=== PATIENT | male | born 1955 | race Caucasian/White ===

== ENCOUNTER 2019-05-27 10:12 | Inpatient (IN) | payer OTHER ==
[~2019-05-27] VITALS: Ht 175.3 cm; Wt 55.8 kg
[2019-05-27 10:16] VITALS: BP 191/136
--- NOTE | 2019-05-27 10:26 | NUR ---
Patient ambulated to bed 7. RN evaluating patient at bedside.
--- NOTE | 2019-05-27 10:31 | NUR ---
63 Y/O MALE PRESENTS TO ED WITH C/O SOB & COUGH X 1 WEEK. ALSO C/O DIZZINESS, AND HEADACHE /. PT STATES HE STOPPED SMOKING THIS WEEK, BUT WAS A 1/2 A PACK A DAY SMOKER. STATES POSITIONAL SOB WHEN LYING DOWN, BUT HAS RELIEF WHEN SITTING, STANDING, OR WALKING. DENIES N/V/D. HAS PMH OF HTN, AND STATES NO MEDS HAVE BEEN TAKEN X 1 WEEK. BP: 205/143; O2%: 96. BLL CTA IN ALL LOBES. BED RAIL X1, WILL CONTINUE TO MONITOR NKDA PMH: HTN
--- NOTE | 2019-05-27 10:44 | NUR ---
ERMD AT BEDSIDE
--- NOTE | 2019-05-27 10:44 | NUR ---
Dr. Gillis evaluating pt at bedside.
[2019-05-27] MEDS ORDERED: ENALAPRILAT 2.5 MG/2 ML VIAL IVP ONE ×2 (10:50→11:00)
[2019-05-27] MEDS ORDERED: IPRATROPIUM 0.02% 0.5 MG/2.5 ML NEBU INH ONE (10:50)
[2019-05-27] MEDS ORDERED: ALBUTEROL 0.083% 2.5 MG/3 ML NEBU INH ONE (10:50)
--- NOTE | 2019-05-27 11:01 | NUR ---
Xray at bedside
--- NOTE | 2019-05-27 11:09 | NUR ---
Breathing treatment administered by respiratory therapist at bedside.
[2019-05-27] MEDS ORDERED: AZITHROMYCIN 500 MG in DEXTROSE 5% 250 ML IV ONE (11:10)
[2019-05-27 11:15] LABS: BASOPHILS # (AUTO) 0.1 K/uL (0.00-0.22); BASOPHILS % (AUTO) 0.9 % (0.0-2.0); EOSINOPHILS % (AUTO) 0.5 % (0.0-4.0); HEMATOCRIT 33.1 % (36-52); HEMOGLOBIN 10.9 g/dL (12.0-18.0); LYMPHOCYTES % (AUTO) 11.4 % (20.5-51.1); MEAN CORPUSCULAR HEMOGLOBIN 31 pg (27-31); MEAN CORPUSCULAR HGB CONC 33 g/dL (33-37); MEAN CORPUSCULAR VOLUME 93.8 fL (80-94); MONOCYTES # (AUTO) 0.6 K/uL (0.8-1.0); NEUTROPHILS # (AUTO) 6.7 K/uL (1.8-7.7); NEUTROPHILS % (AUTO) 80.2 % (42.2-75.2); PLATELET COUNT (AUTO) 91 K/uL (140-450); RED BLOOD CELL COUNT(AUTO) 3.52 MIL/uL (4.20-6.10); RED CELL DISTRIBUTION WIDTH 16.8 % (11.6-13.7); WHITE BLOOD COUNT (AUTO) 8.3 K/uL (4.8-10.8)
[2019-05-27] MEDS ORDERED: cefTRIAXone 1,000 MG VIAL ONE (11:25)
[2019-05-27] MEDS ORDERED: AZITHROMYCIN 500 MG INJ VIAL IV ONE (11:25)
--- NOTE | 2019-05-27 11:26 | NUR ---
lab at bedside.
[2019-05-27 11:35] LABS: ALBUMIN 3.3 g/dL (3.4-5.0); ANION GAP 15.3 (8-16); CARBON DIOXIDE 27.6 mmol/L (21-32); CREATININE 3.7 mg/dL (0.6-1.3); TOTAL BILIRUBIN 1.2 mg/dL (0.0-1.0)
[2019-05-27 11:39] LABS: POTASSIUM 2.9 mmol/L (3.5-5.1)
[2019-05-27] MEDS ORDERED: methylPREDNISolone SS 125 MG/2 ML VIAL IVP ONE (11:40)
[2019-05-27] MEDS ORDERED: ASPIRIN 81 MG TAB.CHEW PO ONE (11:55)
[2019-05-27 12:06] LABS: APPEARANCE,URINE CLEAR (CLEAR); BILIRUBIN,URINE NEGATIVE (NEGATIVE); BLOOD, URINE 3+ (NEGATIVE); COLOR,URINE YELLOW (YELLOW); LEUKOCYTE ESTERASE ,URINE NEGATIVE (NEGATIVE); NITRITE, URINE NEGATIVE (NEGATIVE); UGLUCOSE NEGATIVE (NEGATIVE)
[2019-05-27 12:26] LABS: RBC,URINE 11-20 (MOD) /HPF (0-5); WBC,URINE 0-5 /HPF (0-5)
[2019-05-27 12:33] LABS: COARSE GRANULAR CASTS,URINE 0-10 /LPF (None Seen); HYALINE CASTS, URINE 0-10 /LPF (None Seen)
[2019-05-27] MEDS ORDERED: MORPHINE SULFATE 2 MG/ML SYR IVP PRN (13:05)
[2019-05-27] MEDS ORDERED: HYDROcodone/APAP 5/325 MG 1 TAB TAB PO PRN (13:05)
[2019-05-27] MEDS ORDERED: ONDANSETRON 4 MG/2 ML VIAL IVP PRN (13:05)
[2019-05-27] MEDS ORDERED: LORazepam 2 MG/ML VIAL IVP PRN (13:05)
[2019-05-27] MEDS ORDERED: ACETAMINOPHEN 325 MG TAB PO PRN (13:05)
[2019-05-27] MEDS ORDERED: ALBUTEROL 0.083% 2.5 MG/3 ML NEBU INH PRN (13:05)
[2019-05-27] MEDS ORDERED: FUROSEMIDE 100 MG/10 ML VIAL IVP SCH (13:30)
[2019-05-27] MEDS: hydrALAZINE 20 MG/ML VIAL IVP PRN ×2 (13:34→13:37)
--- NOTE | 2019-05-27 14:00 | NUR ---
PT ADMITTED AT THIS TIME FROM ER COMING FROM HOME. PT ARRIVED ON UNIT VIA GURNEY. AAOX4, NO DISTRESS NOTED, DENIES PAIN, RESPIRATIONS EVEN AND UNLABORED ON ROOM AIR. SKIN INTACT. IV SITE IN PLACE PATENT AND ASYMPTOMATIC SALINE LOCKED IN L FA 20G. PT SEEN BY DR VALLEJO. UPON ADMISSION K+ WAS 2.9, NO POTASSIUM GIVEN IN ER, NO POTASSIUM ORDERED BY DR. VALLEJO. SAFETY MEASURES IN PLACE, CALL LIGHT WITHIN REACH, BED IN LOW POSITION. WILL CONTINUE TO MONITOR.
--- NOTE | 2019-05-27 14:00 | NUR ---
Patient will be admitted to care of [facility]. Admited to TELE. Will go to [id number]. Belongings list completed. Report Alex AYALA.
[2019-05-27] MEDS ORDERED: POTASSIUM CHLORIDE 10 MEQ TABER PO SCH (15:40)
[2019-05-27 16:00] VITALS: BP 154/93
[2019-05-27] MEDS: FUROSEMIDE 40 MG/4 ML VIAL IVP SCH (16:42)
--- NOTE | 2019-05-27 16:48 | NUR ---
MEDICATIONS ADMINISTERED, AWAKE AND SITTING SAFETY MEASURES IN PLACE AND CALL LIGHT WITHIN REACH.WILL CONTINUE MONITORING.
[2019-05-27] MEDS ORDERED: LISI40TA4 PO (17:18)
[2019-05-27] MEDS ORDERED: OMEP20TC12 PO (17:18)
[2019-05-27 18:22] LABS: ANION GAP 17.4 (8-16); CARBON DIOXIDE 25.8 mmol/L (21-32); CREATININE 3.8 mg/dL (0.6-1.3); POTASSIUM 3.2 mmol/L (3.5-5.1)
--- NOTE | 2019-05-27 18:58 | NUR ---
PT IN STABLE CONDITION, WILL ENDORSE TO NIGHT NURSE FOR CONTINUITY OF CARE.
--- NOTE | 2019-05-27 19:15 | NUR ---
CALLED DR SHANNON TO INFORM OF CRITICAL VALUES TROP. 0.285, BUN 74, CREATININE 3.8, ORDERS RECEIVED. INFORMED DR OF K+ OF 3.2 RECEIVED ORDER OF 40MEQ IV.
--- NOTE | 2019-05-27 19:20 | NUR ---
RECIEVED PT. AAOX4 , NID - O2 SAT WNL , DENIES ANY PAIN AT THIS TIME. HE SAID HE HAD ON AND OFF SOB , BUT HE FEELS A LITTLE BIT BETTER NOW THAN IT WAS. ON SL - INTACT AND PATENT . POC DISCUSSED AND VERBALIZE UNDERSTANDING - CALL LIGHT . URINAL WITHIN REACH. WILL CONT. TO MONITOR. ON CARDIAC DIET AND RESTRICTION ON FLD RE EMPHASIZED.
[2019-05-27] MEDS ORDERED: POTASSIUM CHLORIDE 40 MEQ, LIDOCAINE MPF 1% 25 MG in NACL 0.9% 250 ML IV ONE (19:25)
[2019-05-27 20:00] VITALS: BP 144/95
[2019-05-27] MEDS ORDERED: KCL 20 MEQ/WATER INJ PREMIX 100 ML IV ONE (20:26)
[2019-05-27] MEDS ORDERED: KCL 20 MEQ/WATER INJ PREMIX 200 ML IV ONE (21:30)
--- NOTE | 2019-05-27 21:33 | NUR ---
DR SHANNON REVISED THE ORDER FOR KCL- MAY GIVE KCL W/O XYLOCAINE - SAME MEQ DOSAGE T.O - WILL CARRY OUT.
--- NOTE | 2019-05-27 21:53 | NUR ---
THE FIRST BAG OF POTASIUM CHLORIDE 20 MEQ GIVN TIV ORDERED. WILL CONT. TO MONITOR.
--- NOTE | 2019-05-27 22:00 | NUR ---
MADE ROUNDS - I FIXED THE BEDSIDE TEL. FOR THE PT. BECAUSE HER SISTER CALLED WHILE AGO AND REQUESTED SHE WANTS TO HAVE TEL. CONVERSATION W/ THE PT. - PT INFORMED ABOUT THIS.
--- NOTE | 2019-05-27 23:40 | NUR ---
REFUSED BLD.DRAW FOR RPT. TROPONIN - INFORMED CHARGE NURSE.
[2019-05-28] VITALS (7 sets, daily range): BP systolic 129–167; BP diastolic 74–105
--- NOTE | 2019-05-28 | NUR ---
MIDNIGHT SNACK PROVIDED . NO FURTHER COMPLAIN MADE.
--- NOTE | 2019-05-28 00:10 | NUR ---
THE 2ND BAG OF POTASSIUM CHLORIDE ( 2O MEQ ) GIVEN W/ SERIAL # [id number] - CHARGE NURSE KAMAR VARGAS.
--- NOTE | 2019-05-28 01:44 | NUR ---
MADE ROUNDS - SLEEPING - CHEST RISE AND FALL EQUALLY - ON NUCLEAR SPECTROSCOPIST - WILL CONT. TO MONITOR . CALL LIGHT WITHIN REACH.
--- NOTE | 2019-05-28 04:00 | NUR ---
MADE ROUNDS , EATING VANILLA PUDDING , NO COMPLAIN MADE , WI;; CONT. TO MONITOR.
--- NOTE | 2019-05-28 05:10 | NUR ---
C/O HEARTBURN - RE CHECK BP 148/89 , CA 100 , O2 SAT 96% - WILL REFER TO CODE MACHINE OPERATOR. - CALL LIGHT WITHIN REACH.
--- NOTE | 2019-05-28 05:15 | NUR ---
PAGE DR. SHANNON ABOUT THE PT. C/O HEARTBURN - WILL WAIT CALL BACK.
--- NOTE | 2019-05-28 05:25 | NUR ---
INFORM CHARGE NO CALL BACK YET FROM. DR. SHANNON . REFUSED BLD. DRAW THIS AM - INFORM CHARGE NURSE .
--- NOTE | 2019-05-28 05:40 | NUR ---
DR. MIRTHA GÓMEZ- PEPCID 20MG TIV Q12H T.O - WILL CARRY OUT.
[2019-05-28] MEDS: FAMOTIDINE 20 MG/2 ML VIAL IV SCH ×2 (05:53→20:32)
--- NOTE | 2019-05-28 05:53 | NUR ---
PEPCID 20MG TIV GIVEN FOR HEARTBURN ORDERED - WILL CONT. TO MONITOR. PT REQUESTING OATMEAL FOR BRAKFAST - WILL INFORM KITCHEN.
--- NOTE | 2019-05-28 07:20 | NUR ---
RECEIVED BEDSIDE REPORT FROM LUCY GILL. PATIENT IN BED ASLEEP, EASILY AROUSABLE BY NAME OR TOUCH. RESPIRATION EVEN AND UNLABORED. SKIN WARM AND DRY TO TOUCH. IV INTACT AND PATENT TO LEFT FOREARM SALINE LOCK. PER REPORT PATIENT REFUSED AM LABS, OR DIRECTOR NOTIFIED. PLANS OF CARE DISCUSSED. BED IN LOW POSITION. SAFETY MEASURES IN PLACE. CALL LIGHT WITHIN REACH.
--- NOTE | 2019-05-28 08:17 | NUR ---
PATIENT HAS BEEN SCREENED AND CATEGORIZED MODERATE NUTRITION RISK. PATIENT WILL BE SEEN WITHIN 3-5 DAYS OF ADMISSION. 05/30/19 06/01/[address]
--- NOTE | 2019-05-28 08:37 | NUR ---
PT HAS BEEN REFUSING LAB DRAWS. EDUCATED PT ON THE IMPORTANCE OF LAB DRAWS CONSIDERING HIS HEART AND KIDNET SITUATION. PT CONTINUES TO REFUSE.
[2019-05-28] MEDS: AZITHROMYCIN 500 MG in DEXTROSE 5% 250 ML IV SCH (09:09)
[2019-05-28] MEDS: FUROSEMIDE 40 MG/4 ML VIAL IVP SCH (09:10)
--- NOTE | 2019-05-28 09:20 | NUR ---
AM MEDICATIONS GIVEN. PATIENT IS AAOX4. ABLE TO MAKE NEEDS KNOWN. NO S/S OF DISTRESS NOTED. PATIENT ATE BREAKFAST. CALL LIGHT WITHIN REACH.
--- NOTE | 2019-05-28 10:23 | NUR ---
DR. VALLEJO AT BEDSIDE WITH CHARGE NURSE.
--- NOTE | 2019-05-28 10:24 | NUR ---
AT THE BEDSIDE WITH DR VALLEJO, PT ACCEPTED TO RECEIVE BLOOD DRAWS FOR LAB.
[2019-05-28 10:52] LABS: BASOPHILS % (AUTO) 0.2 % (0.0-2.0); HEMATOCRIT 34.4 % (36-52); HEMOGLOBIN 11.2 g/dL (12.0-18.0); LYMPHOCYTES # (AUTO) 0.5 K/uL (2.0-11.5); LYMPHOCYTES % (AUTO) 5.4 % (20.5-51.1); MEAN CORPUSCULAR HEMOGLOBIN 31 pg (27-31); MEAN CORPUSCULAR HGB CONC 33 g/dL (33-37); MEAN CORPUSCULAR VOLUME 94.5 fL (80-94); MONOCYTES # (AUTO) 0.2 K/uL (0.8-1.0); MONOCYTES % (AUTO) 2.6 % (1.7-9.3); NEUTROPHILS # (AUTO) 8.3 K/uL (1.8-7.7); NEUTROPHILS % (AUTO) 91.8 % (42.2-75.2); PLATELET COUNT (AUTO) 99 K/uL (140-450); RED BLOOD CELL COUNT(AUTO) 3.64 MIL/uL (4.20-6.10); RED CELL DISTRIBUTION WIDTH 17.4 % (11.6-13.7)
[2019-05-28 11:12] LABS: ALBUMIN 2.9 g/dL (3.4-5.0); ANION GAP 16.1 (8-16); CARBON DIOXIDE 25.8 mmol/L (21-32); CREATININE 3.7 mg/dL (0.6-1.3); MAGNESIUM 1.4 mg/dL (1.8-2.4); POTASSIUM 3.9 mmol/L (3.5-5.1); TOTAL BILIRUBIN 0.9 mg/dL (0.0-1.0)
--- NOTE | 2019-05-28 11:45 | NUR ---
DR. VALLEJO PAGED IN REGARDS TO PATIENT'S CRITICAL LABS.
--- NOTE | 2019-05-28 12:30 | NUR ---
PATIENT IS AAOX4. ABLE TO MAKE NEEDS KNOWN. NO S/S OF DISTRESS NOTED. PATIENT ATE BREAKFAST. CALL LIGHT WITHIN REACH. VS CHECKED. Addendum: 05/28/19 at 1448 by Mayra Gallego RN CORRECTION TO NOTE ABOVE: PATIENT EATING LUNCH.
--- NOTE | 2019-05-28 12:30 | NUR ---
DR. VALLEJO NOTIFIED OF CRITICAL LAB VALUES. ORDERS RECEIVED.
[2019-05-28] MEDS: hydrALAZINE 20 MG/ML VIAL IVP PRN (12:46)
[2019-05-28] MEDS ORDERED: MAGNESIUM OXIDE 400 MG TAB PO SCH (12:47)
--- NOTE | 2019-05-28 14:30 | NUR ---
PATIENT IS IN BED, ASLEEP EASILY AROUSABLE BY NAME OR TOUCH. NO S/S OF DISTRESS NOTED.
[2019-05-28] MEDS ORDERED: MAG SULF 2000 MG/WATER PREMIX 50 ML IV SCH (15:00)
--- NOTE | 2019-05-28 15:05 | NUR ---
NOTIFIED DR. MCKEON THAT PATIENT RECEIVED MG OX 800MG PO X1 PRIOR TO THE MAG RIDER HE ORDERED. DR. MCKEON CLARIFIED OKAY TO GIVE THE MG RIDER 2GM HE ORDERED.
[2019-05-28] MEDS: FUROSEMIDE 40 MG TAB PO SCH (16:39)
[2019-05-28] MEDS: TAMSULOSIN 0.4 MG CAP PO SCH (16:39)
--- NOTE | 2019-05-28 16:45 | NUR ---
PATIENT AWAKE, ALERT AND ORIENTED X4. PT TALKING ON THE PHONE. NO S/S OF DISTRESS NOTED. CALL LIGHT WITHIN REACH.
--- NOTE | 2019-05-28 18:46 | NUR ---
PATIENT IN STABLE CONDITION. WILL ENDORSE TO NIGHT NURSE FOR CONTINUITY OF CARE.
--- NOTE | 2019-05-28 19:20 | NUR ---
RECEIVED BEDSIDE REPORT FROM DAY RN. PATIENT IN BED ASLEEP, EASILY AROUSABLE BY NAME OR TOUCH. PT IS AAOX4. RESPIRATION EVEN AND UNLABORED. SKIN WARM AND DRY TO TOUCH. IV INTACT AND PATENT TO LEFT FOREARM 20G SALINE LOCK. PT WITH NEDA PITTING EDEMA ON LOWER EXTREMITIES +1. PLANS OF CARE DISCUSSED. BED IN LOW POSITION. SAFETY MEASURES IN PLACE. CALL LIGHT WITHIN REACH.
--- NOTE | 2019-05-28 20:32 | NUR ---
VSS. ANKUR MEDICATIONS GIVEN PER ORDERS. ALL NEEDS MET. CALL LIGHT IS WITHIN REACH.
--- NOTE | 2019-05-28 21:00 | NUR ---
PT SEEN AND ASSESS AT THIS TIME. PT IS IN NO APPARENT RESPIRATORY DISTRESS AT THIS TIME: HR 102, RR 18, SPO2 98% ON ROOM AIR, AND A BILATERAL CLEAR BREATH SOUNDS ON UPPER LOBES. HHN PRN TX NOT INDICATED AT THIS MOMENT. PT WAS INFORMED TO CALL RN OR RAILROAD CAR TRUCK BUILDER WHEN EXPERIENCING SOB. WILL CONTINUE TO MONITOR PT.
--- NOTE | 2019-05-28 22:30 | NUR ---
PT IS SLEEPING COMFORTABLY IN BED WITH EYES CLOSED. CHEST RISE AND FALL. ALL SAFETY MEASURES ARE IN PLACE.
[2019-05-29] VITALS: BP 172/99
[2019-05-29] MEDS: hydrALAZINE 20 MG/ML VIAL IVP PRN (00:53)
--- NOTE | 2019-05-29 00:53 | NUR ---
ADMINISTERED PRN HYDRALAZINE FOR B/P 172/99 HR 107. CALL LIGHT IS WITHIN REACH. WILL CONTINUE TO MONITOR.
[2019-05-29 02:00] VITALS: BP 139/76
--- NOTE | 2019-05-29 02:00 | NUR ---
REASSESS B/P:139/76 HR 111. ALL NEEDS MET. CALL LIGHT IS WITHIN REACH.
[2019-05-29 04:00] VITALS: BP 150/84
--- NOTE | 2019-05-29 04:00 | NUR ---
VITAL SIGNS ARE WITHIN NORMAL LIMITS. ALL SAFETY MEASURES ARE IN PLACE. CALL LIGHT IS WITHIN REACH.
--- NOTE | 2019-05-29 06:26 | NUR ---
PT IS SLEEPING COMFORTABLY IN BED WITH EYES CLOSED. CHEST RISE AND FALL NOTED. PT STABLE. WILL ENDORSE TO DAY RN.
[2019-05-29 06:55] LABS: ANION GAP 14.3 (8-16); CARBON DIOXIDE 29.4 mmol/L (21-32); CREATININE 3.8 mg/dL (0.6-1.3); POTASSIUM 3.7 mmol/L (3.5-5.1)
--- NOTE | 2019-05-29 07:30 | NUR ---
RECEIVED FROM NIGHT NURSE. PT IS IN STABLE CONDITION, AAOX4 NO DISTRESS NOTED, DENIES PAIN, INTACT SKIN, RESPIRATION EVEN AND UNLABORED ON ROOM AIR. IV IN PLACE AND INTACT. SAFETY MEASURES IN PLACE AND CALL LIGHT WITHIN REACH.WILL CONTINUE TO MONITOR.
[2019-05-29 08:00] VITALS: BP 147/87
[2019-05-29] MEDS: TAMSULOSIN 0.4 MG CAP PO SCH (09:00)
[2019-05-29] MEDS: FAMOTIDINE 20 MG/2 ML VIAL IV SCH (09:00)
[2019-05-29] MEDS: FUROSEMIDE 40 MG TAB PO SCH (09:00)
--- NOTE | 2019-05-29 09:00 | NUR ---
MEDICATIONS DUE GIVEN. SAFETY MEASURES IN PLACE AND CALL LIGHT WOITH IN REACH \. WILL CONTINUE TO MONITOR
--- NOTE | 2019-05-29 09:42 | NUR ---
MEDICATIONS DUE GIVEN. SAFETY MEASURES IN PLACE AND CALL LIGHT WITH IN REACH. WILL CONTINUE TO MONITOR
[2019-05-29] MEDS ORDERED: FURO40TA9 PO (10:16)
[2019-05-29] MEDS ORDERED: TAMS0.4C96 PO (10:16)
--- NOTE | 2019-05-29 10:17 | NUR ---
Home Weatherizing Worker Note: Basic Screen: Yes High Risk DC Screen [place]: NINO Hernandez Relationship: SISTER Pre-Admission Living Arrangements: Lives with Other Prior ADL Independent Current Home Health Name/Tel: N/A Current DME/02 Name/Tel: N/A Current Hospice Name/Tel: N/A Current Dialysis Name/Tel: N/A Healthcare Decision Maker: Patient Advance Directive No - REFUSED Physician Orders for Life Sustaining Treatment Form No Patient/Family Have Educational Needs No Information Taught: Advance Directive Person Taught: Patient Teaching Tools: Verbal Factors Affecting Learning: None Participation Level: Refused Evaluation: Verbalizes Understanding Needs Additional Education: No Discipline: Case Mgt/Social Svcs Tentative Discharge Plan/Destination: No Needs Identified Will require assistance post discharge: No Referred to Toy Consultant: No Tentative Discharge Plan Summary: Patient is a 63-year-old male admitted for CHF. Patient has PMHX of benign essential hypertension, and esophageal structure. Patient was admitted from home where he lives with his sister and [id number]. SW met with patient at bedside to verify demographics. Doris repoted no history of mental health and no history of substance abuse. SW assessed for risk factors but none were apparent. Tentative discharge plan after discharge is to return home. No further needs identified. Signature: DAVID Nieves Date: May 29, 2019 Time: 10:16
[2019-05-29] MEDS: AZITHROMYCIN 500 MG in DEXTROSE 5% 250 ML IV SCH (10:20)
--- NOTE | 2019-05-29 11:00 | NUR ---
DR. VALLEJO AT BEDSIDE REVIEWING PLAN OF CARE WITH PATIENT. WILL CONTINUE TO MONITOR.
[2019-05-29 12:00] VITALS: BP 134/87
--- NOTE | 2019-05-29 12:00 | NUR ---
DC PLANNIN YRS OLD MALE PATIENT WAS ADMITTED FROM HOME WITH A DX OF HARRY . PT HAS A HX OF HTN AND ESOPHAGEAL STRICTURE. STARTED ON LASIX IV , IV ROCEPHIN AND IV ZITHROMAX FOR POSSIBLE UNDERLYING PNEUMONIA SEEN BY NEPHRO DR BERMUDEZ ADJUST MEDS AND RECOMMENDED OUT PT FOLLOW UP WITH IN TWO WEEKS PT IS STABLE TO BE DISCHARGED TO HOME.
--- NOTE | 2019-05-29 13:35 | NUR ---
DISCHARGE INSTRUCTIONS PROVIDED TO PATIENT IN PREFERRED LANGUAGE OF MARSHALLESE. INSTRUCTIONS ON NEW/CHANGED MEDICATION REGIMEN AND SIDE EFFECTS, FOLLOW-UP VISIT WITH CARPENTRY TEACHER, DIET REGIMEN, AND DISEASE PROCESS/MANAGEMENT OF CHF. ANSWERED ALL OF PATIENT'S QUESTIONS REGARDING DISCHARGE. PATIENT VERBALIZED COMPLETE UNDERSTANDING. ALL BELONGINGS WITH PATIENT. IV SITE REMOVED WITH MINIMAL BLOOD AND LUMEN COMPLETELY INTACT. ID BANDS REMOVED. ESCORTED PATIENT DOWN TO LOBBY VIA STEADY AMBULATION. PATIENT DISCHARGED AT THIS TIME IN STABLE CONDITION.
== END 2019-05-29 13:45 | disposition home or self-care (01) | DRG 133 ==
LOC: MED 10:12 → MTU 13:08
PROVIDERS: ADMIT Hospitalist; ATTEND Hospitalist
DX: J96.00 Acute respiratory failure, unspecified whether with hypoxia or hypercapnia (principal); N17.9 Acute kidney failure, unspecified; D69.6 Thrombocytopenia, unspecified; I13.0 Hypertensive heart and chronic kidney disease with heart failure and stage 1 through stage 4 chronic kidney disease, or unspecified chronic kidney disease; E87.2 Acidosis; E87.1 Hypo-osmolality and hyponatremia; I50.9 Heart failure, unspecified; I24.9 Acute ischemic heart disease, unspecified; I16.0 Hypertensive urgency; D64.9 Anemia, unspecified; Z87.891 Personal history of nicotine dependence; E87.6 Hypokalemia; N18.9 Chronic kidney disease, unspecified; N40.0 Benign prostatic hyperplasia without lower urinary tract symptoms
CPT/HCPCS: 36415; 71045; 76770; 80048; 80053; 81001; 83605; 83735; 83880; 84100; 84484; 85025; 87040; 87081; 87086; 87804; 93005; 94640; 96365; 96367; 96375; 99291; J0360; J0456; J0696; J1644; J1940; J2001; J2930; J3475; J3480; J3490; J7030; J7060; J7613; J7644; Q0092

== ENCOUNTER 2020-03-08 23:55 | Emergency (ER) | payer OTHER ==
[~2020-03-08] VITALS: Ht 175.3 cm; Wt 68.0 kg
[~2020-03-08 23:55] MED LIST: FURO40TA9 PO; LISI40TA4 PO; OMEP20TC12 PO; TAMS0.4C96 PO
[2020-03-09 00:10] VITALS: BP 189/148
--- NOTE | 2020-03-09 00:10 | NUR ---
TO TENT AMBULATORY
[2020-03-09 00:18] VITALS: BP 189/148
--- NOTE | 2020-03-09 00:20 | NUR ---
PATIENT CALLED TO BE SEEN BY ERMD, NO RESPONSE PATIENT LEFT WITHOUT BEING SEEN BY DR. ESPINOZA. NO FURTHER CARE PROVIDED FOR PATIENT.
--- NOTE | 2020-03-09 00:25 | NUR ---
CALLED FOR THE SECOND TIME NO RESPONSE
--- NOTE | 2020-03-09 00:30 | NUR ---
CALLED FOR THE THIRD TIME NO RESPONSE
== END 2020-03-09 00:20 | disposition left against medical advice (07) ==
LOC: MED 23:55
DX: R05 Cough (principal); Z53.21 Procedure and treatment not carried out due to patient leaving prior to being seen by health care provider

== ENCOUNTER 2020-03-09 08:41 | Emergency (ER) | payer OTHER ==
[~2020-03-09] VITALS: Ht 167.6 cm; Wt 68.9 kg
[2020-03-09 08:44] VITALS: BP 201/98
--- NOTE | 2020-03-09 09:14 | NUR ---
PATIENT LEFT WITHOUT BEING SEEN BY DR. Rivera. NO FURTHER CARE PROVIDED FOR PATIENT.
--- NOTE | 2020-03-09 09:40 | NUR ---
SWAB COLLECTED AND SENT TO LAB
--- NOTE | 2020-03-09 09:53 | NUR ---
64 Y/O MALE C/O INCREASED SOB WHEN LAYING ON BACK TO GO TO SLEEP, PATIENT STATES HE FEELS OKAY WHEN HE IS SITTING DOWN, BUT WHEN HE LAYS ON HIS BACK HE FEELS LIKE HE CANT BREATH. NO ACUTE DISTRESS AT THIS TIME
[2020-03-09 10:40] VITALS: BP 201/98
--- NOTE | 2020-03-09 10:40 | NUR ---
Patient discharged with v/s stable. Written and verbal after care instructions given and explained. Patient alert, oriented and verbalized understanding of instructions. Ambulatory with steady gait. All questions addressed prior to discharge. ID band removed. Patient advised to follow up with PMD. Rx of AZITHROMYCIN given. Patient educated on indication of medication including possible reaction and side effects. Opportunity to ask questions provided and answered.
== END 2020-03-09 10:40 | disposition home or self-care (01) ==
LOC: MED 08:41
DX: J18.9 Pneumonia, unspecified organism (principal); Z20.828 Contact with and (suspected) exposure to other viral communicable diseases; I11.0 Hypertensive heart disease with heart failure; I50.9 Heart failure, unspecified; F17.200 Nicotine dependence, unspecified, uncomplicated; Z79.899 Other long term (current) drug therapy
CPT/HCPCS: 71045; 99284; U0003

== ENCOUNTER 2020-04-06 14:15 | Inpatient (IN) | payer OTHER, SELFPAY ==
[~2020-04-06] VITALS: Ht 170.2 cm; Wt 64.9 kg
[2020-04-06 14:24] VITALS: BP 215/151
--- NOTE | 2020-04-06 14:29 | NUR ---
Pt ambulated to ER bed 1.
--- NOTE | 2020-04-06 14:30 | NUR ---
Pt ambulated to restroom for UA collection.
--- NOTE | 2020-04-06 14:32 | NUR ---
64 y/o male pt c/o bilateral leg and feet swelling x 2 days with increase in pain with walking. Pt stes he has increased SOB at home, on arrival connected to monitor SPO2 at 99% RA. Lungs are clear throughout, no signs of increased WOB. PMH: HTN NKA
--- NOTE | 2020-04-06 14:55 | NUR ---
EMT at pt bedside for EKG.
--- NOTE | 2020-04-06 14:58 | NUR ---
LABS DRAWN BY TECH, IV ACCESS OBTAINED TO RIGHT HAND #20 , XRAY HERE FOR PCXR. TOLERATED PROCEDURES WELL.
[2020-04-06 15:02] LABS: BASOPHILS % (AUTO) 0.7 % (0.0-2.0); EOSINOPHILS % (AUTO) 0.7 % (0.0-4.0); HEMATOCRIT 32.1 % (36-52); HEMOGLOBIN 10.5 g/dL (12.0-18.0); LYMPHOCYTES # (AUTO) 0.9 K/uL (2.0-11.5); MEAN CORPUSCULAR HEMOGLOBIN 31 pg (27-31); MEAN CORPUSCULAR HGB CONC 33 g/dL (33-37); MEAN CORPUSCULAR VOLUME 95.3 fL (80-94); MONOCYTES # (AUTO) 0.3 K/uL (0.8-1.0); MONOCYTES % (AUTO) 4.9 % (1.7-9.3); NEUTROPHILS # (AUTO) 3.8 K/uL (1.8-7.7); NEUTROPHILS % (AUTO) 75.7 % (42.2-75.2); PLATELET COUNT (AUTO) 158 K/uL (140-450); RED BLOOD CELL COUNT(AUTO) 3.37 MIL/uL (4.20-6.10); RED CELL DISTRIBUTION WIDTH 16.6 % (11.6-13.7); WHITE BLOOD COUNT (AUTO) 5.1 K/uL (4.8-10.8)
[2020-04-06] MEDS ORDERED: FUROSEMIDE 40 MG/4 ML VIAL IVP ONE (15:30)
[2020-04-06] MEDS ORDERED: NITROGLYCERIN 0.4 MG TAB SL ONE (15:30)
[2020-04-06 15:36] LABS: ALBUMIN 3.2 g/dL (3.4-5.0); ANION GAP 14.8 (8-16); CARBON DIOXIDE 24.8 mmol/L (21-32); CREATININE 3.6 mg/dL (0.6-1.3); POTASSIUM 3.6 mmol/L (3.5-5.1); TOTAL BILIRUBIN 0.5 mg/dL (0.0-1.0)
--- NOTE | 2020-04-06 15:59 | NUR ---
Received critical lab value troponin 0.108, Dr. Mccallum made aware.
[2020-04-06] MEDS ORDERED: LABETALOL 100 MG/20 ML VIAL IVP ONE (16:15)
--- NOTE | 2020-04-06 16:54 | NUR ---
Collected LEIDAID CB swab, walked to lab.
[2020-04-06] MEDS ORDERED: ACETAMINOPHEN 325 MG TAB PO PRN (17:35)
[2020-04-06] MEDS ORDERED: HYDROcodone/APAP 5/325 MG 1 TAB TAB PO PRN (17:35)
[2020-04-06] MEDS ORDERED: ONDANSETRON 4 MG/2 ML VIAL IVP PRN (17:35)
[2020-04-06 18:01] LABS: CREATINE KINASE MB 21.6 ng/mL (0-3.6)
--- NOTE | 2020-04-06 18:16 | NUR ---
Dr. Tommy Gramajo is evaluating the patient at bedside.
--- NOTE | 2020-04-06 19:17 | NUR ---
received report from madeline mosher. transfer of care at this time.
--- NOTE | 2020-04-06 19:17 | NUR ---
Gave report to LUCY Cortes. Transfer of care at this time.
--- NOTE | 2020-04-06 19:39 | NUR ---
called and gave report to madeline small. ext [phone]. pt is going to rm [id number].
--- NOTE | 2020-04-06 19:40 | NUR ---
RECEIVED REPORT FROM ER NURSE FOR CONTINUITY OF CARE. PT WILL BE ARRIVING ON THE UNIT SHORTLY.
--- NOTE | 2020-04-06 19:42 | NUR ---
ultrasound at bedside.
--- NOTE | 2020-04-06 20:00 | NUR ---
PT IS STABLE CONDITION. VSS. EQUAL RISE AND FALL OF CHEST WALL. GIVEN APPLE JUICE PER REQUEST. ALL NEEDS MET AT THIS TIME. BED LOCKED IN LOWEST POSITION, SIDE RAILS X2.
[2020-04-06] MEDS: CLONIDINE HYDROCHLORIDE 0.1 MG TAB PO PRN (20:30)
[2020-04-06] MEDS ORDERED: FUROSEMIDE 40 MG/4 ML VIAL IVP SCH (21:00)
[2020-04-06] MEDS ORDERED: carvediloL 6.25 MG TAB PO SCH (21:00)
--- NOTE | 2020-04-06 21:15 | NUR ---
Patient will be admitted to care of . Admited to TELE. Will go to room 124B. Belongings list completed. Report to LUCY CONTRERAS.
[2020-04-06 21:30] VITALS: BP 164/120
--- NOTE | 2020-04-06 21:30 | NUR ---
RECEIVED PT FROM ER NURSE FOR CONTINUITY OF CARE. PT ARRIVED VIA GURNEY. NO DISTRESS NOTED. PT IS AWAKE AND ALERT, A&OX4. ON RA WITH BREATHING UNLABORED. PT IS AMBULATORY WITH ASSISTANCE. PAIN ON AMBULATION, BILATERAL SWELLING OF LEGS- PITTING 2+. SKIN IS WARM, DRY, AND INTACT. IV IS IN THE RIGHT HAND 20 GAUGE SALINE LOCKED PT IS STABLE. WILL CONTINUE TO MONITOR. PLAN OF CARE DISCUSSED.
[2020-04-06] MEDS ORDERED: guaiFENesin 20 MG/ML UDC PO PRN (23:00)
--- NOTE | 2020-04-06 23:01 | NUR ---
PT IS COUGHING CONTINUOUSLY. COUGH IS PRODUCTIVE, CREAMY AND WHITE. INFORMED DR. DRIVER OF THE SITUATION AND HE ORDERED QUAFINESIN 200 MG Q4H PRN FOR COUGH. WILL ADMINISTER ONCE VERIFIED.
--- NOTE | 2020-04-06 23:03 | NUR ---
REASSESSED PT'S BP AND IT WAS 156/100. WILL CONTINUE TO MONITOR.
--- NOTE | 2020-04-06 23:05 | NUR ---
PT WAS GIVEN ROBITUSSIN FOR COUGH. WILL CONTINUE TO MONITOR PT'S COUGH.
[2020-04-06 23:32] LABS: CREATINE KINASE MB 13.2 ng/mL (0-3.6)
[2020-04-07] VITALS: BP 159/119
--- NOTE | 2020-04-07 01:00 | NUR ---
ROUNDED ON PT. GAVE HIM DECAF COFFEE REQUESTED. PT IS AWAKE AND TALKING APPROPRIATELY. NC IN PLACE ON 4L O2. BED IS IN LOWEST POSITION AND CALL LIGHT IS WITHIN REACH. PT IS STABLE.
[2020-04-07 01:50] VITALS: BP 168/115
[2020-04-07] MEDS: CLONIDINE HYDROCHLORIDE 0.1 MG TAB PO PRN (01:50)
--- NOTE | 2020-04-07 01:57 | NUR ---
ADMINISTERED CLONIDINE PRN FOR SBP OVER 160. BP WAS 165/115 AND HR WAS 85. WILL MONITOR BP.
--- NOTE | 2020-04-07 03:20 | NUR ---
PT REFUSED BP BEING TAKEN AFTER BEING GIVEN THE BP MED. AFTER GIVING EDUCATION ON IMPORTANCE OF MONITORING BP. PT STILL REFUSED TO HAVE BP TAKEN.
--- NOTE | 2020-04-07 04:00 | NUR ---
PT REFUSED FOR VITALS TO BE TAKEN BY PARTS COUNTER CLERK. AFTER ASKING MULTIPLE TIMES, PT STILL REFUSED.
--- NOTE | 2020-04-07 04:00 | NUR ---
PT IS ASLEEP IN SEMI FOWLERS POSITION. NO DISTRESS NOTED. BREATHING IS UNLABORED. NO SIGNS OF PAIN. WILL CONTINUE TO MONITOR.
--- NOTE | 2020-04-07 05:15 | NUR ---
PT STATES HE HAS BUSINESS TO TAKE CARE OF AND NEEDS TO LEAVE. AFTER BEING INFORMED OF THE RISKS OF LEAVING BEFORE BEING SEEN BY THE PHYSICIAN, THE PT STILL DECIDED TO LEAVE AMA. PT SIGNED THE PAPERWORK AND THE IV WAS REMOVED. ARMBANDS WERE ALSO REMOVED AND TELE MONITOR. PT IS NOW CHANGING AND WILL BE ESCORTED OUT SHORTLY.
--- NOTE | 2020-04-07 05:45 | NUR ---
PT STILL USING THE RESTROOM. PT IS HAVING A BM. PT STATES HE NEEDS MORE TIME IN THE RESTROOM BEFORE LEAVING.
--- NOTE | 2020-04-07 06:05 | NUR ---
PT JUST LEFT AMA THROUGH FRONT LOBBY. FRIEND TO BULLET CHARGING MACHINE OPERATOR. PT IS STABLE AND SPEAKING APPROPRIATELY. GAIT IS STEADY. A&OX4. BREATHING IS UNLABORED. PT IS STABLE.
--- NOTE | 2020-04-07 06:22 | NUR ---
RIR COMPLETED FOR THE AMA SECTION. UNIQUE ID NUMBER [id number].
[2020-04-07] MEDS ORDERED: ASPIRIN 81 MG TAB.CHEW PO SCH (09:00)
[2020-04-07] MEDS ORDERED: ENOXAPARIN 40 MG/0.4 ML SYR SUBQ SCH (09:00)
[2020-04-07] MEDS ORDERED: amLODIPine 5 MG TAB PO SCH (09:00)
== END 2020-04-07 06:05 | disposition left against medical advice (07) | DRG 194 ==
LOC: MED 14:15 → EEVIPCON 17:36 → MTU 17:36
PROVIDERS: ADMIT Internal Medicine; ATTEND Internal Medicine
DX: I11.0 Hypertensive heart disease with heart failure (principal); I21.A1 Myocardial infarction type 2; I50.43 Acute on chronic combined systolic (congestive) and diastolic (congestive) heart failure; N18.4 Chronic kidney disease, stage 4 (severe); I42.9 Cardiomyopathy, unspecified; I16.0 Hypertensive urgency; Z20.822 Contact with and (suspected) exposure to COVID-19; J44.9 Chronic obstructive pulmonary disease, unspecified; Z72.0 Tobacco use; Z59.0 Homelessness; Z71.6 Tobacco abuse counseling
CPT/HCPCS: 36415; 71045; 80053; 82550; 82553; 83880; 84484; 85025; 93005; 96372; 99285; J1940; J3490